=== PATIENT | male | born 1985 | race Caucasian/White ===

== ENCOUNTER 2016-11-24 19:17 | Emergency (ER) | payer OTHER ==
[~2016-11-24] VITALS: Ht 188 cm; Wt 90.7 kg
--- NOTE | 2016-11-24 20:03 | RADIOLOGY REPORT ---
EXAMINATION: XR WRIST, RIGHT CLINICAL INFORMATION: Pain and swelling. COMPARISON: None TECHNIQUE: Four views of the right wrist. FINDINGS: There is a comminuted ulnar styloid fracture. The fracture fragments remain grossly aligned. No additional fractures are seen. The carpal rows are appropriately aligned. Soft tissue swelling is present. There is likely a healed chronic fracture at the fifth metacarpal. IMPRESSION: Comminuted ulnar styloid fracture with grossly maintained alignment.
--- NOTE | 2016-11-24 21:46 | ED UPPER/LOWER EXTREMITY COMPL ---
See Addendum History of Present Illness General Chief Complaint: Hand or Wrist Injury Stated Complaint: RT WRIST PAIN Source: patient Exam Limitations: no limitations Vital Signs & Intake/Output Vital Signs & Intake/Output Vital Signs Date Time Temp Pulse Resp B/P B/P Pulse O2 O2 Flow FiO2 Mean Ox Delivery Rate 11/25 2223 97.6 53 18 127/86 96 Room Air 11/24 1928 97.2 60 18 145/87 98 Room Air ED Intake and Output 11/25 0000 11/24 1200 Intake Total 0 Output Total Balance 0 Intake, Oral 0 Patient 200 lb Weight Weight Reported by Patient Measurement Method Allergies Coded Allergies: NO KNOWN ALLERGIES (01/18/12) Reconcile Medications No Known Home Medications Triage Note: PT TO ED C/O RT WRIST PAIN S/P INJURY AT WORK 3 DAYS AGO. STATES DOESN'T THINK INJURY IS COVERED UNDER WORKMAN'S COMP. SWELLING NOTED. PAIN WORSE WITH MOVEMENT/USE OF RT WRIST. Triage Nurses Notes Reviewed? yes Onset: Abrupt Duration: constant Timing: recent history Severity: severe Severity Numbers: 7 HPI: Patient is a 31-year-old male who presents emergency and that while at work 4 days ago patient struck the medial aspect of his wrist to a cardboard box however he did KNOW that there was WOOD underneath it where he C/O acute onset of right wrist pain since. Patient hasn't taken any medications for symptoms Patient is right arm dominant. States that at rest he has no symptoms however with wrist movements it is made worse. (ROBERTO ESPINOSA) Past History Travel History Traveled to [place] past 21 day No Medical History Any Pertinent Medical History? see below for history Neurological: NONE EENT: NONE Cardiovascular: NONE Respiratory: NONE Gastrointestinal: NONE Hepatic: NONE Renal: NONE Musculoskeletal: NONE Psychiatric: anxiety, depression Endocrine: NONE Surgical History Surgical History: non-contributory Psychosocial History What is your primary language German Tobacco Use: Never used ETOH Use: occasional use Illicit Drug Use: denies illicit drug use Family History Hx Contributory? No (ROBERTO ESPINOSA) Review of Systems Review of Systems Constitutional: Reports: no symptoms. EENTM: Reports: no symptoms. Respiratory: Reports: no symptoms. Cardiovascular: Reports: no symptoms. Gastrointestinal/Abdominal: Reports: no symptoms. Genitourinary: Reports: no symptoms. Musculoskeletal: Reports: see HPI, joint pain. Skin: Reports: no symptoms. Neurological/Psychological: Reports: no symptoms. Hematologic/Endocrine: Reports: no symptoms. Immunological: Reports: no symptoms. All Other Systems: Reviewed and Negative (ROBERTO ESPINOSA) Physical Exam Physical Exam General Appearance: no apparent distress, alert, comfortable Neurologic/Tendon: normal sensation, normal motor functions, normal tendon functions, responds to pain, no evidence tendon injury, no pulse deficit Skin: intact, normal color, warm/dry Comments: Well-developed well-nourished no apparent distress. HEENT: Atraumatic, extraocular motion intact Neck: Supple, no lymphadenopathy Back: Nontender Respiratory: No respiratory distress Extremities: Right elbow normal inspection nontender Right wrist noted swelling and point tenderness decreased active range of motion Right hand normal inspection nontender Right upper extremity dermatomes intact radial pulse +2 Neuro: Alert and oriented x3 Psych: Mood affect normal, normal memory normal judgment. (ROBERTO ESPINOSA) Progress Differential Diagnosis: arterial insufficiency, compartment syndrome, contusion, dislocation, DVT, fracture, gout, septic arthritis, sprain, tendon injury Plan of Care: Patient has concerns of distal ulnar styloid comminuted fracture. Sugar tong splint was applied to the right forearm shoulder immobilizer placed. Pre-and post-neurovascular was intact Diagnostic Imaging: Viewed by Me: Radiology Read. Radiology Impression: acute abnormality, fracture Comments: PATIENT: RAKEL HARRISON PRESENT AGE: 31 PATIENT ACCOUNT NO: [id number] : 86 LOCATION: [facility] ORDERING PHYSICIAN: CHAI GALARZA MD SERVICE DATE: 11/24/16 EXAM TYPE: RAD - XRY-WRIST COMPLETE-RIGHT EXAMINATION: XR WRIST, RIGHT CLINICAL INFORMATION: Pain and swelling. COMPARISON: None TECHNIQUE: Four views of the right wrist. FINDINGS: There is a comminuted ulnar styloid fracture. The fracture fragments remain grossly aligned. No additional fractures are seen. The carpal rows are appropriately aligned. Soft tissue swelling is present. There is likely a healed chronic fracture at the fifth metacarpal. IMPRESSION: Comminuted ulnar styloid fracture with grossly maintained alignment. DICTATED BY: JASBIR LARSEN,VIVIAN DATE/TIME DICTATED:11/24/161958 DIE MAINTENANCE:ELIZABETH (ROBERTO ESPINOSA) Departure Departure Disposition: HOME OR SELF CARE Condition: Stable Clinical Impression Primary Impression: Ulna distal fracture Referrals: PATIENT HAS NO PRIMARY CARE DR (PCP/Family) SOL LARSEN,LOGAN Samaniego Additional Instructions: As discussed the splint has been applied to YOU IN THE emergency room please leave this on at all times until you follow up with the orthopedic doctor. On Sunday please follow-up and call orthopedic DR. HORTON for further evaluation treatment. Begin [id number] ibuprofen for pain and inflammation. If symptoms worsen return to emergency room. Departure Forms: Customer Survey General Discharge Information Prescriptions: Current Visit Scripts No Known Home Medications (ROBERTO ESPINOSA) PA/[employer]PER[employer] Co-Sign Statement Statement: ED Attending supervision documentation- [] I saw and evaluated the patient. I have also reviewed all the pertinent lab results and diagnostic results. I agree with the findings and the plan of care as documented in the PA's/[employer]'s documentation. [x] I have reviewed the ED Record and agree with the PA's/[employer]'s documentation. [] Additions or exceptions (if any) to the PAs/SUPER[employer]'s note and plan are summarized below: [] (MICHELL LARSEN,CHAI Samaniego) Procedures Splinting Location: RIGHT FOREARM Manual Alignment Performed: No Hand-Made Type: orthoglass Splint: sugar-tong Splint Applied By: splint applied by me Pre-Proc Neuro Vasc Exam: normal Post-Proc Neuro Vasc Exam: normal (ROBERTO ESPINOSA)
[2016-11-24 22:24] VITALS: BP 127/86
== END 2016-11-24 22:35 ==
LOC: ERH 19:17
DX: S52.614A Nondisplaced fracture of right ulna styloid process, initial encounter for closed fracture (principal); W22.8XXA Striking against or struck by other objects, initial encounter; Y93.9 Activity, unspecified; Y92.9 Unspecified place or not applicable
CPT/HCPCS: 73110-RT

== ENCOUNTER 2017-09-18 05:07 | Emergency (ER) | payer OTHER ==
[~2017-09-18] VITALS: Ht 185.4 cm; Wt 90.7 kg
--- NOTE | 2017-09-18 05:26 | ED NECK/BACK PAIN COMPLAINT ---
History of Present Illness General Chief Complaint: Low Back Pain/Injury Stated Complaint: PT C/O LOWER BACK PAIN NO INJURY Source: patient, old records Exam Limitations: no limitations Vital Signs & Intake/Output Vital Signs & Intake/Output Vital Signs Date Time Temp Pulse Resp B/P B/P Pulse O2 O2 Flow FiO2 Mean Ox Delivery Rate 09/19 619 97.0 64 18 138/82 98 Room Air 09/18 0518 96 Room Air 09/18 0517 96.0 59 18 144/84 96 Room Air Allergies Coded Allergies: NO KNOWN ALLERGIES (01/18/12) Reconcile Medications Cyclobenzaprine HCl 10 MG TABLET 1 TAB PO Q8P PAIN OR SPASM Triage Note: PT FROM HOME C/O LOWER RIGHT SIDED BACK PAIN X1 DAY. 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 PT STATES AROUND 2200 LAST NIGHT THE LOWER RIGHT SIDED BACK PAIN BECAME 10/10. PT STATES CONSTANT ACHING THAT IS NON RADIATING. VSS. Triage Nurses Notes Reviewed? yes HPI: Last week patient was lifting boxes at work and felt a pulling sensation in his right lower back. Yesterday he was lifting more boxes at work and a pulling sensation worsened. Patient was unable to sleep last night secondary to the pain. There is no radiation of the pain. There are no aggravating or mitigating factors. Patient states that it feels like it is tapering side. Patient denies any hematuria. There is no dysuria. There is no nausea or vomiting. There's no fevers or chills. Patient rates the pain at 7 out of 10. Patient states she has pulled muscles in his back before andusually get worse when he moves this time and is not happening and the pain is different. Radiation down his leg. There is no weakness or numbness. There is no incontinence of bowel or bladder. Past History Travel History Traveled to [place] past 21 day No Medical History Any Pertinent Medical History? see below for history Neurological: NONE EENT: NONE Cardiovascular: NONE Respiratory: NONE Gastrointestinal: NONE Hepatic: NONE Renal: NONE Musculoskeletal: NONE Psychiatric: anxiety, depression Endocrine: NONE Surgical History Surgical History: non-contributory Psychosocial History What is your primary language South [place] Tobacco Use: Never used ETOH Use: occasional use Illicit Drug Use: denies illicit drug use Family History Hx Contributory? No Review of Systems Review of Systems Constitutional: Reports: no symptoms. Eyes: Reports: no symptoms. Ears, Nose, Throat, Mouth: Reports: no symptoms. Respiratory: Reports: no symptoms. Cardiovascular: Reports: no symptoms. Gastrointestinal/Abdominal: Reports: no symptoms. Musculoskeletal: Reports: see HPI, back pain. Skin: Reports: no symptoms. Neurological/Psychological: Reports: no symptoms. All Other Systems: Reviewed and Negative Physical Exam Physical Exam General Appearance: well developed/nourished, alert, awake, mild distress Head: atraumatic, normal appearance Eyes: Bilateral: PERRL, EOMI. Ears, Nose, Throat, Mouth: hearing grossly normal, moist mucous membrane Neck: normal inspection, supple, full range of motion, no midline tenderness Respiratory: normal breath sounds, chest non-tender, no respiratory distress, lungs clear Cardiovascular: regular rate/rhythm, normal peripheral pulses Gastrointestinal: normal bowel sounds, soft, non-tender Back: normal inspection, no vertebral tenderness, NO CVA TENDERNESS Extremities: normal range of motion Straight Leg Raising: Right: Negative. Left: Negative. Neurologic/Psych: awake, alert, oriented x 3, normal mood/affect Skin: intact, normal color, warm/dry Core Measures CVA/TIA Diagnosis: No Progress Differential Diagnosis: herniated disc, myofascial strain, pyelo/UTI, ureterolithiasis Plan of Care: Orders Procedure Date/time Status URINALYSIS 09/18 524 Complete Laboratory Tests 09/18/17529: Urine Color YEL, Urine Clarity CLEAR, Urine pH 6.0, Ur Specific [place] >= 1.030 , Urine Protein NEG, Urine Ketones NEG, Urine Nitrite NEG, Urine Bilirubin NEG, Urine Urobilinogen 0.2, Ur Leukocyte Esterase NEG, Ur Microscopic SEDIMENT EXAMINED, Urine RBC 5-10 H, Urine WBC RARE, Ur Epithelial Cells FEW, Urine Crystals 1+ CA OX H, Urine Mucus MANY H, Urine Hemoglobin TRACE-INTACT H, Urine Glucose NEG Diagnostic Imaging: Viewed by Me: CT Scan. Discussed w/RAD: CT Scan. Radiology Impression: PATIENT: RAKEL HARRISON PRESENT AGE: 32 PATIENT ACCOUNT NO: [id number] : 86 LOCATION: [facility] ORDERING PHYSICIAN: Sage Martinez MD SERVICE DATE: 09/18/17 EXAM TYPE: CAT - CT ABD & PELVIS W/O IV CONTRAS EXAMINATION: CT ABDOMEN AND PELVIS WITHOUT CONTRAST CLINICAL INFORMATION: Right flank pain COMPARISON: None TECHNIQUE: Multidetector volumetric imaging was performed from the superior aspect of the liver through the pubic symphysis. Sagittal and coronal reformatted images were obtained on the technologist's workstation. DLP: 371.61 mGy-cm FINDINGS: LUNG BASES: The visualized lung bases are unremarkable. LIVER, GALLBLADDER, AND BILIARY TREE: The liver is normal in size, shape, and attenuation. No focal hepatic lesion or biliary ductal dilatation is present. The gallbladder is unremarkable with no evidence of radiopaque gallstones, gallbladder wall thickening, or obvious pericholecystic inflammatory changes. PANCREAS: Unremarkable. SPLEEN: Unremarkable. ADRENAL GLANDS: Unremarkable. KIDNEYS AND URETERS: The kidneys are normal in size, shape, and attenuation. No hydronephrosis, hydroureter, or calculi seen. No perinephric stranding. BLADDER: Unremarkable. GASTROINTESTINAL TRACT: The small and large bowel are unremarkable. The appendix is unremarkable. ABDOMINAL WALL: No significant hernia is appreciated. LYMPH NODES: Normal. VASCULAR: Unremarkable. PELVIC VISCERA: Unremarkable. OSSEOUS STRUCTURES: Unremarkable. IMPRESSION: Normal CT scan abdomen and pelvis. DICTATED BY: Yo Lopez MD DATE/TIME DICTATED:548 ORIENTATION AND MOBILITY SPECIALIST:ELIZABETH DATE/TIME TRANSCRIBED:09/18/17548 CONFIDENTIAL, DO NOT COPY WITHOUT APPROPRIATE AUTHORIZATION. <Electronically signed in Other Vendor System> SIGNED BY: Yo Lopez MD 09/18/17 0554 Comments: PT IS FEELING BETTER After TORADOL. PAIN DOWN TO 2 OUT OF 10. Departure Departure Disposition: HOME OR SELF CARE Condition: Stable Clinical Impression Primary Impression: Muscle strain Referrals: Patient Has No Primary Care Dr (PCP/Family) Additional Instructions: USE MOIST HEAT TAKE FLEXERIL NEEDED FOR PAIN RETURN IF SYMPTOMS WORSEN OR FOR ANY CONCERNS Departure Forms: Customer Survey General Discharge Information Release- Work Prescriptions: Current Visit Scripts Cyclobenzaprine HCl 1 TAB PO Q8P #20 TAB
--- NOTE | 2017-09-18 05:54 | CT SCAN REPORT ---
EXAMINATION: CT ABDOMEN AND PELVIS WITHOUT CONTRAST CLINICAL INFORMATION: Right flank pain COMPARISON: None TECHNIQUE: Multidetector volumetric imaging was performed from the superior aspect of the liver through the pubic symphysis. Sagittal and coronal reformatted images were obtained on the technologist's workstation. DLP: 371.61 mGy-cm FINDINGS: LUNG BASES: The visualized lung bases are unremarkable. LIVER, GALLBLADDER, AND BILIARY TREE: The liver is normal in size, shape, and attenuation. No focal hepatic lesion or biliary ductal dilatation is present. The gallbladder is unremarkable with no evidence of radiopaque gallstones, gallbladder wall thickening, or obvious pericholecystic inflammatory changes. PANCREAS: Unremarkable. SPLEEN: Unremarkable. ADRENAL GLANDS: Unremarkable. KIDNEYS AND URETERS: The kidneys are normal in size, shape, and attenuation. No hydronephrosis, hydroureter, or calculi seen. No perinephric stranding. BLADDER: Unremarkable. GASTROINTESTINAL TRACT: The small and large bowel are unremarkable. The appendix is unremarkable. ABDOMINAL WALL: No significant hernia is appreciated. LYMPH NODES: Normal. VASCULAR: Unremarkable. PELVIC VISCERA: Unremarkable. OSSEOUS STRUCTURES: Unremarkable. IMPRESSION: Normal CT scan abdomen and pelvis.
[2017-09-18] MEDS ORDERED: CYCLOBENZAPRINE10 M1 PO (05:57)
[2017-09-18 06:20] VITALS: BP 138/82
== END 2017-09-18 06:29 ==
LOC: ERH 05:07
DX: S39.012A Strain of muscle, fascia and tendon of lower back, initial encounter (principal); X58.XXXA Exposure to other specified factors, initial encounter; Y92.9 Unspecified place or not applicable; Y93.9 Activity, unspecified
CPT/HCPCS: 74176; 81001; 96372; J1885